=== PATIENT | male | born 1945 | race African-American/Black ===

== ENCOUNTER 2017-02-08 06:16 | Day surgery (SDC) | payer MEDICARE, BC ==
[2017-02-05 14:04] VITALS: BMI 23.6
[2017-02-08] MEDS ORDERED: Sodium Chloride 0.9% 10 ML ONE (06:41)
[2017-02-08] MEDS ORDERED: Thrombin 5000 UNITS/5 ML VIAL ONE (06:41)
[2017-02-08] MEDS ORDERED: Fentanyl 100 MCG/2 ML VIAL ONE ×3 (06:43→09:50)
[2017-02-08] MEDS ORDERED: CEFAZOLIN/Water 2 GM/20 ML SYRINGE ONE (06:54)
[2017-02-08 07:04] LABS: #Basophils 0.1 thou/uL (0.0-0.2); #Eosinphils 0.2 thou/uL (0.0-0.7); #Lymphocytes 1.7 thou/uL (1.20-3.40); #Monocytes 0.5 thou/uL (0.11-0.59); #Neutrophils 3.8 thou/uL (1.40-6.50); %Basophils 1.1 % (0.0-1.0); %Eosinophils 2.4 % (0.0-10.0); %Lymphocytes 27.4 % (21.0-51.0); %Monocytes 8.6 % (0.0-10.0); Hematocrit 46.1 % (42.0-52.0); Mean Platelet Volume 6.8 fL (7.4-10.4); Red Blood Cell (RBC) Count 4.99 mill/uL (4.70-6.10); White Blood Cell (WBC) Count 6.3 thou/uL (4.8-10.8)
[2017-02-08 07:25] LABS: Anion Gap 13 mmol/L (10-20); BUN (Urea Nitrogen) 25 mg/dL (8.4-25.7); Calc. Creatinine Clearance 36 mL/min (70-130); Calcium 10.3 mg/dL (7.8-10.44); Carbon Dioxide 27 mmol/L (23-31); Chloride 103 mmol/L (98-107); Estimated GFR-MDRD 47
[2017-02-08] MEDS ORDERED: Metoclopramide HCl 10 MG/2 ML VIAL ONE (08:10)
[2017-02-08] MEDS ORDERED: diphenhydrAMINE 50 MG/ML VIAL ONE (08:10)
[2017-02-08] MEDS ORDERED: Dexamethasone 20 MG/5 ML VIAL ONE (08:10)
[2017-02-08] MEDS ORDERED: Ondansetron HCl/PF 4 MG/2 ML Vial ONE (08:10)
[2017-02-08] MEDS ORDERED: Lidocaine 1% PF 5 ML VIAL ONE (08:10)
[2017-02-08] MEDS ORDERED: Glycopyrrolate 0.2 MG/ML 5 ML SYRINGE ONE (08:10)
[2017-02-08] MEDS ORDERED: Propofol 200 MG/20 ML VIAL ONE (08:10)
--- NOTE | 2017-02-08 09:12 | OP ---
DATE OF PROCEDURE: 02/08/2017 SURGEON: Regulo Blevins M.D. CONTINUITY CLERK: Zach Martini PA-C PROCEDURE: Anterior cervical discectomy C4-5, interbody arthrodesis, intravertebral biomechanical d evice, local morselized autograft, demineralized bone matrix, anterior titanium instrumentation C4-5 . PROCEDURE IN DETAIL: The patient was brought into the operating room and intubated. He was positio [place] supine with the head in modest extension on a gel-filled donut. An incision made in the right p recervical area and dissecting medial to the sternocleidomastoid muscle. We identified the anterior cervical spine and our level was confirmed by x-ray. We debrided anterior osteophytes, placed dist raction across C4-5 and using the operating microscope and microdissection techniques, completely de compressed the intravertebral disc and spinal cord from foramen to foramen. Next, the bony endplate s were decorticated for the purpose of arthrodesis. An appropriately sized intravertebral biomechan ical PEEK device was brought into the field, filled with demineralized bone matrix and local morseli zed autograft, and tapped into place securely at C4-5. Next, an anterior plate was brought in the f ield and secured to C4 and C5 using two 14 mm screws at each level. The wound was then extensively irrigated, immaculate hemostasis was secured, and the wound was closed in anatomic layers.
[2017-02-08] MEDS ORDERED: Ketorolac Tromethamine 30 MG/ML VIAL ONE (09:27)
[2017-02-08] MEDS ORDERED: Promethazine HCl 25 MG/ML VIAL ONE (11:03)
== END 2017-02-08 14:35 | disposition home or self-care (01) ==
LOC: SDC 06:16
PROVIDERS: ATTEND Neurological Surgery
PROC: 0RG20A0 Fusion of 2 or more Cervical Vertebral Joints with Interbody Fusion Device, Anterior Approach, Anterior Column, Open Approach (ICD-10-PCS; principal; 2017-02-08)
DX: M47.12 Other spondylosis with myelopathy, cervical region (principal); Z90.49 Acquired absence of other specified parts of digestive tract; Z98.890 Other specified postprocedural states; Z87.891 Personal history of nicotine dependence
CPT/HCPCS: 20936; 22551; 22853; 76001; 80048; 85025; 93005; 96374 ×3; 96375; C1713 ×2; 36415; 93010; A4216; J0131; J1100; J1200; J1885; J2001; J2270; J2405; J2550; J2704; J2765; J3010; J3490

== ENCOUNTER 2017-02-23 15:44 | Outpatient (CLI) | payer MEDICARE, BC ==
--- NOTE | 2017-02-23 16:14 | RAD ---
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 Patient had surgery on 01-22-17. FINDINGS/IMPRESSION: There are post op changes of spinal fusion with intradiscal prostheses at C4-5 level in good positio n and alignment. Degenerative changes are present. No acute fracture, subluxation, or bony destructi on is identified. POS: JERARDO
== END 2017-02-23 15:45 | disposition home or self-care (01) ==
LOC: TBSIIMAG 15:44
PROVIDERS: ATTEND Physician Assistant
DX: M47.12 Other spondylosis with myelopathy, cervical region (principal); Z98.1 Arthrodesis status
CPT/HCPCS: 72040

== ENCOUNTER 2017-04-08 14:55 | Outpatient (CLI) | payer MEDICARE, BC ==
--- NOTE | 2017-04-08 16:08 | RAD ---
CERVICAL SPINE THREE VIEWS: History: Neck pain. Prior surgery. Comparison: 02-23-17 FINDINGS: Anterior fixation plate and screws are in place at the C4-5 level without perihardware lucency. Metal lic markers associated with interbody fusion material at the post-operative levels are within the con fines of the disc space. There is osteophytosis throughout the vertebral bodies and facets. Vertebral body heights are maintained. No acute fracture or dislocation are apparent. IMPRESSION: 1. Sable radiographic appearance of the posterior and degenerative changes of the cervical spine. POS: FIDENCIO
== END 2017-04-08 14:56 | disposition home or self-care (01) ==
LOC: TBSIIMAG 14:55
PROVIDERS: ATTEND Neurological Surgery
DX: M48.02 Spinal stenosis, cervical region (principal); M47.812 Spondylosis without myelopathy or radiculopathy, cervical region
CPT/HCPCS: 72040

== ENCOUNTER 2017-07-07 10:40 | Outpatient (CLI) | payer MEDICARE, BC ==
--- NOTE | 2017-07-07 13:00 | RAD ---
RADIOGRAPH CERVICAL SPINE 3 VIEWS: DATE: 07-07-17 HISTORY: 71-year-old male with cervical spondylosis, M47.12. COMPARISON: 02-23-17 FINDINGS: Anterior metallic plate and screws at C4 and C5. Tiny metallic dots marking interbody spacer plug, wi dening the C4-5 disc space. Disc space narrowing: Mild to moderate at C3-4, moderate to severe at C5-6, and moderate at C6-7. Small endplate marginal osteophytes encroach upon the anterior aspect of the spinal canal at C3-4 and C5-6. The C2-3 disc space is maintained. Alignment is normal. The previously demonstrated prevertebr al soft tissue swelling has resolved. There is no osseous bridging between the endplates of C4 and C5 . Normal bilateral atlantoaxial joints. Degenerative facet changes are relatively mild bilaterally. IMPRESSION: 1. Status post anterior cervical discectomy and fusion at C4-5. 2. Interval resolution of the post-operative prevertebral soft tissue swelling. 3. No other interval change since 02-23-17. 4. Degenerative disc disease at several levels, worst at C5-6, followed by C6-7. ANGELICA POS: FIDENCIO
== END 2017-07-07 10:41 | disposition home or self-care (01) ==
LOC: TBSIIMAG 10:40
PROVIDERS: ATTEND Neurological Surgery
DX: M47.12 Other spondylosis with myelopathy, cervical region (principal); M50.30 Other cervical disc degeneration, unspecified cervical region; M50.322 Other cervical disc degeneration at C5-C6 level; M79.89 Other specified soft tissue disorders; Z98.1 Arthrodesis status
CPT/HCPCS: 72040

== ENCOUNTER 2017-08-17 13:57 | Outpatient (CLI) | payer MEDICARE, BC ==
[2017-08-17] MEDS ORDERED: Gadobenate Dimeglumine 529 MG/1 ML (20ML VIAL) ONE (15:07)
--- NOTE | 2017-08-17 18:54 | MRI ---
MRI OF THE LUMBAR SPINE WITHOUT AND WITH CONTRAST 08/17/17 COMPARISON: None. HISTORY: Low back pain since surgery done in December 2016. Lumbar radiculopathy. TECHNIQUE: Multiplanar and multisequence MR images were obtained in the lumbar spine without and with IV contras t. FINDINGS: The intervertebral discs are narrowed in the lower lumbosacral spine. The vertebral bodies demonstrat e normal height without fracture or subluxation. End plate degenerative changes are seen in the lower lumbosacral spine. The conus medullaris terminates normally at L1. The prevertebral soft tissues are unremarkable. The p loli has had laminectomies in the lower lumbosacral spine. T12-L1: Unremarkable. L1-2: Unremarkable. L2-3: A small generalized concentric disc bulge is seen. No posterior facet arthrosis. Mild central c anal stenosis. Mild bilateral neural foraminal stenosis. L3-4: A moderate disc osteophyte complex is seen. Moderate bilateral posterior facet arthrosis. Moder ate to severe central canal stenosis. Moderate bilateral neural foraminal stenosis. L4-5: A large disc osteophyte complex is associated with a superimposed central protrusion/extrusion. Severe bilateral posterior facet arthrosis. Severe central canal stenosis. Severe bilateral neural f oraminal stenosis. L5-S1: A small disc osteophyte complex is seen. Moderate bilateral posterior facet arthrosis. Mild ce ntral canal stenosis. Severe left and moderate right neural foraminal stenosis. There is enhancement at the laminectomy site at L5-S1 posteriorly. No significant enhancement is seen within the central c anal. IMPRESSION: Postsurgical and degenerative changes of the lumbar spine as above. POS: FIDENCIO
== END 2017-08-17 13:58 | disposition home or self-care (01) ==
LOC: TBSIIMAG 13:57
PROVIDERS: ATTEND Neurological Surgery
DX: M47.26 Other spondylosis with radiculopathy, lumbar region (principal); Z98.1 Arthrodesis status
CPT/HCPCS: 72158; 82565; A9579